=== PATIENT | female | born 1955 ===

== ENCOUNTER 2021-05-04 10:00 | Inpatient (IN) | payer OTHER ==
[~2021-05-04] VITALS: Ht 165.1 cm; Wt 67.1 kg
[2021-05-04] MEDS ORDERED: ZESTRIL20 MG PO (12:37)
[2021-05-04] MEDS ORDERED: PLAVIX75 MG PO (12:37)
[2021-05-04] MEDS ORDERED: GABAPENTIN100 MG (12:38)
[2021-05-04] MEDS ORDERED: B12 ACTIVE1000 MCG PO (12:38)
[2021-05-13] MEDS ORDERED: HYOSCYAMINE0.125 M1 SL (13:53)
[2021-05-13] MEDS ORDERED: INTESTINEX680 M1 PO (13:54)
[2021-05-13] MEDS ORDERED: OXYC1TAB9 PO (13:54)
== END 2021-05-13 15:31 | disposition home or self-care (01) | DRG 331 ==
LOC: SURH 05-06 08:45 → O/R 05-10 05:00 → SURH 05-10 05:00
PROVIDERS: ADMIT Surgery; ATTEND Surgery
PROC: 07TC4ZZ Resection of Pelvis Lymphatic, Percutaneous Endoscopic Approach (ICD-10-PCS; 2021-05-10)
PROC: 0DJD8ZZ Inspection of Lower Intestinal Tract, Via Natural or Artificial Opening Endoscopic (ICD-10-PCS; 2021-05-10)
PROC: 0DTN4ZZ Resection of Sigmoid Colon, Percutaneous Endoscopic Approach (ICD-10-PCS; principal; 2021-05-10 10:00)
DX: C19 Malignant neoplasm of rectosigmoid junction (principal); Z20.822 Contact with and (suspected) exposure to COVID-19; D12.7 Benign neoplasm of rectosigmoid junction

== ENCOUNTER 2021-06-07 13:47 | Emergency (ER) | payer OTHER ==
[~2021-06-07] VITALS: Ht 162.6 cm; Wt 64.9 kg
[~2021-06-07 13:47] MED LIST: B12 ACTIVE1000 MCG PO; GABAPENTIN100 MG; HYOSCYAMINE0.125 M1 SL; INTESTINEX680 M1 PO; OXYC1TAB9 PO; PLAVIX75 MG PO; ZESTRIL20 MG PO
[2021-06-07] MEDS ORDERED: NEURONTIN300 MG (15:04)
== END 2021-06-07 23:53 | disposition home or self-care (01) ==
LOC: ER 13:47
DX: R10.31 Right lower quadrant pain (principal); Z88.0 Allergy status to penicillin; Z79.02 Long term (current) use of antithrombotics/antiplatelets; Z85.038 Personal history of other malignant neoplasm of large intestine; Z98.890 Other specified postprocedural states